=== PATIENT | male | born 1965 | race Caucasian/White ===

== ENCOUNTER 2020-10-06 19:22 | Inpatient (IN) | payer OTHER ==
[~2020-10-06] VITALS: Ht 182.9 cm; Wt 105.4 kg
[2020-10-06] MEDS ORDERED: SODIUM CHLORIDE 0.9% 1,000 ML IV ONE (20:00)
[2020-10-06] MEDS ORDERED: ONDANSETRON 2MG/ML, 2ML IVPush ONE (20:00)
[2020-10-06] MEDS ORDERED: SODIUM CHLORIDE FLUSH 10ML SYR IVF ONE (20:00)
[2020-10-06] MEDS ORDERED: MORPHINE SULFATE 4 MG/ML, 1ML ONE ×2 (20:07→21:07)
[2020-10-06] MEDS ORDERED: ONDANSETRON 2MG/ML, 2ML ONE (20:07)
[2020-10-06 20:09] LABS: BASOPHILS % (AUTO) 0 % (0-1); EOSINOPHILS % (AUTO) 0 % (1-7); LYMPHOCYTES % (AUTO) 9 % (22-44); MEAN CORPUSCULAR HEMOGLOBIN 28.2 pg (27.5-34.5); MEAN CORPUSCULAR HGB CONC 33.9 g/dL (33.2-36.2); MEAN PLATELET VOLUME 7.2 fL (7.4-10.4); MONOCYTES % (AUTO) 9 % (2-9); NEUTROPHILS % (AUTO) 81 % (42-75); PLATELET COUNT 345 x10^3/uL (130-400); RED BLOOD COUNT 5.36 x10^6/uL (4.38-5.82); RED CELL DISTRIBUTION WIDTH 13.2 % (9.4-14.8)
[2020-10-06] MEDS: MORPHINE SULFATE 4 MG/ML, 1ML IVPush PRN ×2 (20:10→21:11)
[2020-10-06 20:11] LABS: MD NO
--- NOTE | 2020-10-06 20:13 | NUR ---
PT. IS A & O X 4 WITH A GCS OF 15. PT. HAS A C/O 8 DAYS WITH ABD. PAIN AND DIVERTICULITIS. PT. REPORTS WORSENING PAIN TODAY. PT. IS PINK, WARM AND DRY, CAP REFILL IS LESS THAN 2 SECONDS. PULSES ARE +2 THROUGHOUT. PT.'S LUNGS ARE CTA. S1 S2 NOTED WITHOUT MURMURS, RUBS OR GALLOPS. PT.'S ABD. IS ROUND AND TENDER WITH BS +X 4 QUADS. PT. HAS PAIN THROUGHOUT HIS ENTIRE ABD. WITH PALPATION. PT. MOVES ALL EXTREMITIES WNL. CP MONITOR IS IN PLACE. IV ACCESS WAS ESTABLISHED X 1 STICK WITH LABS OBTAINED FROM THE IV START. PT.'S HOB IS ELEVATED GREATER THAN 30 DEGREES. VSS. PT. HAS A BLANKET IN PLACE FOR WARMTH. SIDERAILS REMAIN UP X 2 WITH THE CALL LIGHT IN PLACE.
[2020-10-06 20:22] LABS: ALANINE AMINOTRANSFERASE 21 U/L (12-78); ANION GAP 7 mmol/L (5-15); CALCIUM 8.3 mg/dL (8.5-10.1); CHLORIDE 103 mmol/L (98-107); CREATININE 0.74 mg/dL (0.7-1.3)
[2020-10-06 20:25] LABS: ALKALINE PHOSPHATASE 92 U/L (45-117); BILIRUBIN,TOTAL 0.5 mg/dL (0.2-1.0); TOTAL PROTEIN 6.5 g/dL (6.4-8.2)
--- NOTE | 2020-10-06 20:31 | NUR ---
PT. REPORTS PAIN RELIEF.
--- NOTE | 2020-10-06 21:03 | NUR ---
PT. WAS TAKEN TO CT SCAN. VSS.
[2020-10-06] MEDS ORDERED: OMNIPAQUE 350 MG/ML, 100ML BOTTLE ONE (21:06)
[2020-10-06] MEDS ORDERED: CIPROFLOXACIN/PMX 400MG/200ML 200 ML IVPB ONE (21:30)
[2020-10-06] MEDS ORDERED: SODIUM CHLORIDE 0.9% 1,000ML IVBOLUS ONE (21:30)
[2020-10-06] MEDS ORDERED: METRONIDAZOLE PMX 500MG/100ML 100 ML IV ONE (21:30)
[2020-10-06] MEDS ORDERED: hydrALAzine 20 MG/ML, 1ML IVPush PRN (22:30)
[2020-10-06] MEDS ORDERED: ACETAMINOPHEN 325 MG TABLET PO PRN (22:30)
[2020-10-06] MEDS ORDERED: ONDANSETRON 2MG/ML, 2ML IVPush PRN (22:30)
[2020-10-06] MEDS ORDERED: PROMETHAZINE 25 MG/ML, 1ML IM PRN (22:30)
[2020-10-06] MEDS ORDERED: D5%-0.9% NACL 1,000 ML IV SCH (22:30)
[2020-10-06] MEDS ORDERED: ONDANSETRON ODT 4 MG PO PRN (22:30)
[2020-10-06] MEDS: PIPERACILLIN/TAZO 3.375 GM in DEXTROSE 5% 50 ML IV SCH (22:42)
[2020-10-06] MEDS ORDERED: BENA40TA3 PO (22:44)
[2020-10-06] MEDS ORDERED: ATEN25TA PO (22:44)
--- NOTE | 2020-10-06 22:44 | NUR ---
PT.'S IV ABX ARE INFUSING ON THE PUMP. VSS. DR. HAMM UPDATED ON PT.'S HOME MEDS. REPORT CALLED PT. READY FOR TRANSPORT.
[2020-10-06] MEDS ORDERED: POTASSIUM CHLORIDE 40 MEQ in SODIUM CHLORIDE 0.9% 500 ML IV ONE (23:00)
[2020-10-06 23:13] VITALS: BP 127/81
[2020-10-07] MEDS: morphine SULFATE 10 MG/ML, 1ML IVPush PRN ×2 (00:08→05:08)
[2020-10-07 00:11] VITALS: BP 128/84
[2020-10-07] MEDS: PIPERACILLIN/TAZO 3.375 GM in DEXTROSE 5% 50 ML IV SCH ×4 (04:59→23:59)
[2020-10-07 05:45] LABS: MICROSCOPIC NOT IND
[2020-10-07 06:37] LABS: BASOPHILS % (AUTO) 0 % (0-1); EOSINOPHILS % (AUTO) 0 % (1-7); LYMPHOCYTES % (AUTO) 11 % (22-44); MEAN CORPUSCULAR HGB CONC 33.9 g/dL (33.2-36.2); MEAN PLATELET VOLUME 7.5 fL (7.4-10.4); MONOCYTES % (AUTO) 11 % (2-9); NEUTROPHILS % (AUTO) 77 % (42-75); PLATELET COUNT 302 x10^3/uL (130-400); RED BLOOD COUNT 4.96 x10^6/uL (4.38-5.82); RED CELL DISTRIBUTION WIDTH 13.4 % (9.4-14.8)
[2020-10-07 06:38] LABS: MD NO
[2020-10-07 06:53] LABS: CHLORIDE 107 mmol/L (98-107)
[2020-10-07 07:05] LABS: ALANINE AMINOTRANSFERASE 17 U/L (12-78); ALBUMIN 2.7 g/dL (3.4-5.0); ALKALINE PHOSPHATASE 78 U/L (45-117); ANION GAP 5 mmol/L (5-15); BILIRUBIN,TOTAL 0.4 mg/dL (0.2-1.0); CALCIUM 7.9 mg/dL (8.5-10.1); CHOL/HDL RATIO 2.9; CHOLESTEROL, TOTAL 80 mg/dL (140-239); CREATININE 0.64 mg/dL (0.7-1.3); HDL CHOL % 35 % (26-37); HDL CHOLESTEROL (DIRECT) 28 mg/dL (40-60); LDL CHOLESTEROL,CALCULATED 42 mg/dL (54-169); LDL/HDL RATIO 1.5 (0.5-3.0); TRIGLYCERIDES 48 mg/dL (50-200); VLDL CHOLESTEROL 10 mg/dL (0-25)
[2020-10-07 07:27] VITALS: BP 124/76
[2020-10-07] MEDS: ATENOLOL 50 MG TABLET PO SCH (09:55)
[2020-10-07] MEDS: BENAZEPRIL 20 MG TABLET PO SCH (09:55)
[2020-10-07 13:12] VITALS: BP 108/68
[2020-10-07] MEDS ORDERED: LIDOCAINE 1%, 10ML ONE (16:22)
[2020-10-07] MEDS ORDERED: FENTANYL PF 100 MCG/2ML ONE (16:29)
[2020-10-07] MEDS ORDERED: FLUMAZENIL 0.1 MG/1 ML, 5ML ONE (16:29)
[2020-10-07] MEDS ORDERED: MIDAZOLAM 1 MG/ML, 5ML ONE (16:29)
[2020-10-07] MEDS ORDERED: NALOXONE 1 MG/ML, 2ML ONE (16:30)
[2020-10-07 18:31] LABS: ANION GAP 5 mmol/L (5-15); CALCIUM 7.7 mg/dL (8.5-10.1); CHLORIDE 109 mmol/L (98-107); CREATININE 0.67 mg/dL (0.7-1.3)
[2020-10-07 19:51] VITALS: BP 110/70
[2020-10-07] MEDS: POTASSIUM CHLORIDE 20 MEQ in D5%-0.9% NACL 1,000 ML IV SCH (21:04)
[2020-10-07] MEDS: OXYcodone IR 5MG TABLET PO PRN (21:04)
[2020-10-07] MEDS: HEPARIN 5,000 UNITS/ML, 1ML SQ SCH (21:05)
[2020-10-08 01:13] VITALS: BP 128/80
[2020-10-08] MEDS: morphine SULFATE 10 MG/ML, 1ML IVPush PRN ×4 (02:27→21:31)
[2020-10-08] MEDS: POTASSIUM CHLORIDE 20 MEQ in D5%-0.9% NACL 1,000 ML IV SCH ×3 (05:56→23:27)
[2020-10-08] MEDS: HEPARIN 5,000 UNITS/ML, 1ML SQ SCH ×3 (05:56→21:31)
[2020-10-08] MEDS: PIPERACILLIN/TAZO 3.375 GM in DEXTROSE 5% 50 ML IV SCH ×3 (05:56→19:35)
[2020-10-08] MEDS: OXYcodone IR 5MG TABLET PO PRN ×3 (06:05→16:39)
[2020-10-08 06:06] LABS: BASOPHILS % (AUTO) 1 % (0-1); EOSINOPHILS % (AUTO) 1 % (1-7); LYMPHOCYTES % (AUTO) 13 % (22-44); MEAN CORPUSCULAR HEMOGLOBIN 28.4 pg (27.5-34.5); MEAN CORPUSCULAR HGB CONC 34.2 g/dL (33.2-36.2); MEAN PLATELET VOLUME 7.6 fL (7.4-10.4); MONOCYTES % (AUTO) 11 % (2-9); NEUTROPHILS % (AUTO) 74 % (42-75); PLATELET COUNT 306 x10^3/uL (130-400); RED BLOOD COUNT 4.75 x10^6/uL (4.38-5.82); RED CELL DISTRIBUTION WIDTH 13.4 % (9.4-14.8)
[2020-10-08 06:10] LABS: MD NO
[2020-10-08 06:11] LABS: ALBUMIN 2.5 g/dL (3.4-5.0); ANION GAP 4 mmol/L (5-15); CALCIUM 7.8 mg/dL (8.5-10.1); CHLORIDE 109 mmol/L (98-107)
[2020-10-08 06:16] LABS: ALANINE AMINOTRANSFERASE 17 U/L (12-78); ALKALINE PHOSPHATASE 73 U/L (45-117); BILIRUBIN,TOTAL 0.4 mg/dL (0.2-1.0); CREATININE 0.69 mg/dL (0.7-1.3); TOTAL PROTEIN 5.6 g/dL (6.4-8.2)
[2020-10-08 06:49] VITALS: BP 129/86
[2020-10-08] MEDS: BENAZEPRIL 20 MG TABLET PO SCH (09:13)
[2020-10-08] MEDS: ATENOLOL 50 MG TABLET PO SCH (09:13)
[2020-10-08 12:47] VITALS: BP 125/80
[2020-10-08 19:30] VITALS: BP 130/84
[2020-10-09] MEDS: PIPERACILLIN/TAZO 3.375 GM in DEXTROSE 5% 50 ML IV SCH ×2 (00:31→06:15)
[2020-10-09 01:30] VITALS: BP 125/85
[2020-10-09] MEDS: morphine SULFATE 10 MG/ML, 1ML IVPush PRN ×2 (04:39→08:28)
[2020-10-09] MEDS: HEPARIN 5,000 UNITS/ML, 1ML SQ SCH (05:16)
[2020-10-09 05:47] LABS: BASOPHILS % (AUTO) 0 % (0-1); EOSINOPHILS % (AUTO) 0 % (1-7); LYMPHOCYTES % (AUTO) 11 % (22-44); MEAN CORPUSCULAR HEMOGLOBIN 28.1 pg (27.5-34.5); MEAN CORPUSCULAR HGB CONC 33.6 g/dL (33.2-36.2); MEAN PLATELET VOLUME 7.4 fL (7.4-10.4); MONOCYTES % (AUTO) 11 % (2-9); NEUTROPHILS % (AUTO) 77 % (42-75); PLATELET COUNT 327 x10^3/uL (130-400); RED BLOOD COUNT 4.97 x10^6/uL (4.38-5.82); RED CELL DISTRIBUTION WIDTH 13.5 % (9.4-14.8)
[2020-10-09 05:50] LABS: MD NO
[2020-10-09 06:00] LABS: CHLORIDE 110 mmol/L (98-107)
[2020-10-09 06:08] LABS: ALBUMIN 2.5 g/dL (3.4-5.0); ANION GAP 5 mmol/L (5-15); CREATININE 0.59 mg/dL (0.7-1.3)
[2020-10-09 07:03] VITALS: BP 129/82
[2020-10-09] MEDS: POTASSIUM CHLORIDE 20 MEQ in D5%-0.9% NACL 1,000 ML IV SCH ×2 (08:27→23:17)
[2020-10-09] MEDS: BENAZEPRIL 20 MG TABLET PO SCH (08:28)
[2020-10-09] MEDS: ATENOLOL 50 MG TABLET PO SCH (08:28)
[2020-10-09] MEDS ORDERED: FENTANYL PF 250 MCG/5ML ONE (10:20)
[2020-10-09] MEDS ORDERED: PROPOFOL 50 ML ONE (10:20)
[2020-10-09] MEDS ORDERED: MIDAZOLAM 1 MG/ML, 2ML ONE (10:20)
[2020-10-09] MEDS ORDERED: PROPOFOL 10 MG/ML, 20ML ONE (10:23)
[2020-10-09] MEDS ORDERED: ONDANSETRON 2MG/ML, 2ML ONE (11:25)
[2020-10-09] MEDS ORDERED: ROCURONIUM 10MG/ML,5ML ONE (11:25)
[2020-10-09] MEDS ORDERED: DEXAMETHASONE 4 MG/ML, 5ML ONE (11:25)
[2020-10-09] MEDS ORDERED: SUCCINYLCHOLINE 20 MG/ML, 10ML ONE (11:25)
[2020-10-09] MEDS ORDERED: HYDROmorphone 1 MG/ML, 1ML INJ ONE (11:26)
[2020-10-09] MEDS ORDERED: EPHEDRINE 50 MG/ML, 1ML IVPush PRN (13:30)
[2020-10-09] MEDS ORDERED: MEPERIDINE/PF 25MG/0.5ML IVPush PRN (13:30)
[2020-10-09] MEDS ORDERED: PROMETHAZINE 25 MG/ML, 1ML IVPush PRN (13:30)
[2020-10-09] MEDS ORDERED: ONDANSETRON 2MG/ML, 2ML IVPush PRN (13:30)
[2020-10-09] MEDS ORDERED: OXYcodone 5 MG/5 ML ORAL.SOL UDC PO PRN (13:30)
[2020-10-09] MEDS ORDERED: morphine SULFATE 10 MG/ML, 1ML IVPush PRN (13:30)
[2020-10-09] MEDS ORDERED: DIAZEPAM 5 MG/ML, 2ML IVPush PRN (13:30)
[2020-10-09] MEDS ORDERED: FENTANYL PF 100 MCG/2ML IV PRN (13:30)
[2020-10-09] MEDS ORDERED: DIPHENHYDRAMINE 50 MG/ML, 1ML IVPush PRN (13:30)
[2020-10-09] MEDS ORDERED: EPHEDRINE 50 MG/ML, 1ML IM PRN (13:30)
[2020-10-09] MEDS ORDERED: LABETALOL 5MG/ML, 20ML IV PRN (13:30)
[2020-10-09] MEDS ORDERED: METHOCARBAMOL 1,000 MG in DEXTROSE 5% 100 ML IV PRN (14:00)
[2020-10-09] MEDS ORDERED: FENTANYL PF 100 MCG/2ML ONE (14:07)
[2020-10-09] MEDS ORDERED: OXYcodone 5 MG/5 ML ORAL.SOL UDC ONE (14:07)
[2020-10-09 14:30] VITALS: BP 109/72
[2020-10-09] MEDS ORDERED: OXYcodone IR 5MG TABLET PO PRN (16:30)
[2020-10-09] MEDS ORDERED: LACTATED RINGERS 1,000 ML IV SCH (16:30)
[2020-10-09] MEDS ORDERED: SCOPOLAMINE 1MG PATCH TD PRN (16:30)
[2020-10-09] MEDS ORDERED: LORazepam 1MG TABLET PO PRN (16:30)
[2020-10-09] MEDS ORDERED: TRAZODONE 50MG TABLET PO PRN (16:30)
[2020-10-09] MEDS ORDERED: DEXAMETHASONE 4 MG/ML, 1ML IVPush PRN (16:30)
[2020-10-09] MEDS ORDERED: LORazepam 2 MG/ML, 1ML IVPush PRN (16:30)
[2020-10-09] MEDS ORDERED: HYDROmorphone 1 MG/ML, 1ML INJ IVPush PRN (16:30)
[2020-10-09] MEDS ORDERED: SODIUM CHLORIDE FLUSH 10ML SYR IVF PRN (16:30)
[2020-10-09] MEDS ORDERED: DIPHENHYDRAMINE 25 MG CAPSULE PO PRN (16:30)
[2020-10-09] MEDS ORDERED: ONDANSETRON 2MG/ML, 2ML IV PRN (16:30)
[2020-10-09] MEDS ORDERED: HALOPERIDOL 5 MG/ML IVPush PRN (16:30)
[2020-10-09] MEDS: PIPERACILLIN/TAZO 3.375 GM in DEXTROSE 5% 50 ML IVPB SCH ×2 (17:30→23:17)
[2020-10-09] MEDS: ACETAMINOPHEN 500 MG TABLET PO SCH ×2 (17:30→23:17)
[2020-10-09] MEDS: KETOROLAC 30 MG/1 ML IVPush SCH ×2 (17:30→23:17)
[2020-10-09 20:00] VITALS: BP 105/69
[2020-10-09 23:37] VITALS: BP 114/72
[2020-10-10 03:41] VITALS: BP 105/67
[2020-10-10 05:22] LABS: ANION GAP 3 mmol/L (5-15); CALCIUM 8.1 mg/dL (8.5-10.1); CHLORIDE 111 mmol/L (98-107)
[2020-10-10] MEDS: PIPERACILLIN/TAZO 3.375 GM in DEXTROSE 5% 50 ML IVPB SCH ×4 (05:22→23:22)
[2020-10-10] MEDS: KETOROLAC 30 MG/1 ML IVPush SCH ×4 (05:23→23:22)
[2020-10-10] MEDS: ACETAMINOPHEN 500 MG TABLET PO SCH ×4 (05:23→23:22)
[2020-10-10 06:18] LABS: BASOPHILS % (AUTO) 0 % (0-1); EOSINOPHILS % (AUTO) 0 % (1-7); LYMPHOCYTES % (AUTO) 9 % (22-44); MEAN CORPUSCULAR HEMOGLOBIN 27.8 pg (27.5-34.5); MEAN CORPUSCULAR HGB CONC 33.2 g/dL (33.2-36.2); MEAN PLATELET VOLUME 7.4 fL (7.4-10.4); MONOCYTES % (AUTO) 13 % (2-9); NEUTROPHILS % (AUTO) 78 % (42-75); PLATELET COUNT 292 x10^3/uL (130-400); RED BLOOD COUNT 4.83 x10^6/uL (4.38-5.82); RED CELL DISTRIBUTION WIDTH 13.5 % (9.4-14.8)
[2020-10-10] MEDS: D5%-0.45NACL+KCL 20MEQ 1,000 ML IV SCH ×2 (06:42→21:21)
[2020-10-10 06:43] LABS: MD SCAN
[2020-10-10 07:20] VITALS: BP 108/70
[2020-10-10] MEDS: ENOXAPARIN 40 MG/0.4 ML SQ SCH (08:47)
[2020-10-10] MEDS: BENAZEPRIL 20 MG TABLET PO SCH (09:00)
[2020-10-10] MEDS: ATENOLOL 50 MG TABLET PO SCH (09:00)
[2020-10-10 13:53] VITALS: BP 103/66
[2020-10-10] MEDS: AMPICILLIN/SULBACTAM 3 GM in SODIUM CHLORIDE 0.9% 100 ML IV SCH ×2 (14:52→22:24)
[2020-10-10 19:17] VITALS: BP 113/72
[2020-10-10] MEDS: DIPHENHYDRAMINE 50 MG/ML, 1ML IVPush PRN (23:21)
[2020-10-11] MEDS: CALCIUM CARBONATE 500 MG TAB.CHEW PO PRN ×2 (00:47→04:35)
[2020-10-11 01:22] VITALS: BP 102/63
[2020-10-11 03:15] LABS: BASOPHILS % (AUTO) 0 % (0-1); EOSINOPHILS % (AUTO) 0 % (1-7); LYMPHOCYTES % (AUTO) 3 % (22-44); MEAN CORPUSCULAR HGB CONC 33.2 g/dL (33.2-36.2); MEAN PLATELET VOLUME 7.2 fL (7.4-10.4); MONOCYTES % (AUTO) 4 % (2-9); NEUTROPHILS % (AUTO) 92 % (42-75); PLATELET COUNT 352 x10^3/uL (130-400); RED BLOOD COUNT 4.82 x10^6/uL (4.38-5.82); RED CELL DISTRIBUTION WIDTH 13.5 % (9.4-14.8)
[2020-10-11 03:17] LABS: MD NO
[2020-10-11 03:27] LABS: ANION GAP 3 mmol/L (5-15); CALCIUM 8.3 mg/dL (8.5-10.1); CHLORIDE 107 mmol/L (98-107); CREATININE 0.69 mg/dL (0.7-1.3)
[2020-10-11] MEDS: ACETAMINOPHEN 500 MG TABLET PO SCH ×4 (05:30→23:21)
[2020-10-11] MEDS: KETOROLAC 30 MG/1 ML IVPush SCH ×4 (05:30→23:22)
[2020-10-11] MEDS: DIPHENHYDRAMINE 50 MG/ML, 1ML IVPush PRN (05:32)
[2020-10-11] MEDS: PIPERACILLIN/TAZO 3.375 GM in DEXTROSE 5% 50 ML IVPB SCH ×4 (05:32→23:22)
[2020-10-11] MEDS: AMPICILLIN/SULBACTAM 3 GM in SODIUM CHLORIDE 0.9% 100 ML IV SCH ×3 (06:22→22:23)
[2020-10-11 07:59] VITALS: BP 144/93
[2020-10-11] MEDS: ATENOLOL 50 MG TABLET PO SCH (09:08)
[2020-10-11] MEDS: BENAZEPRIL 20 MG TABLET PO SCH (09:08)
[2020-10-11] MEDS: FLUCONAZOLE 400 MG/200 ML 200 ML IV SCH (09:08)
[2020-10-11] MEDS: ENOXAPARIN 40 MG/0.4 ML SQ SCH (09:08)
[2020-10-11 14:35] VITALS: BP 127/82
[2020-10-11] MEDS: D5%-0.45NACL+KCL 20MEQ 1,000 ML IV SCH (16:05)
[2020-10-11 18:40] VITALS: BP 113/74
[2020-10-12 05:08] LABS: BASOPHILS % (AUTO) 1 % (0-1); EOSINOPHILS % (AUTO) 2 % (1-7); LYMPHOCYTES % (AUTO) 11 % (22-44); MEAN CORPUSCULAR HEMOGLOBIN 27.8 pg (27.5-34.5); MEAN CORPUSCULAR HGB CONC 32.9 g/dL (33.2-36.2); MEAN PLATELET VOLUME 7.2 fL (7.4-10.4); MONOCYTES % (AUTO) 8 % (2-9); NEUTROPHILS % (AUTO) 79 % (42-75); PLATELET COUNT 355 x10^3/uL (130-400); RED BLOOD COUNT 4.55 x10^6/uL (4.38-5.82); RED CELL DISTRIBUTION WIDTH 13.6 % (9.4-14.8)
[2020-10-12 05:09] LABS: MD NO
[2020-10-12] MEDS: PIPERACILLIN/TAZO 3.375 GM in DEXTROSE 5% 50 ML IVPB SCH ×4 (05:15→23:42)
[2020-10-12] MEDS: D5%-0.45NACL+KCL 20MEQ 1,000 ML IV SCH ×3 (05:15→22:41)
[2020-10-12] MEDS: KETOROLAC 30 MG/1 ML IVPush SCH ×2 (05:15→11:35)
[2020-10-12] MEDS: ACETAMINOPHEN 500 MG TABLET PO SCH ×4 (05:15→23:42)
[2020-10-12 05:17] LABS: CHLORIDE 108 mmol/L (98-107)
[2020-10-12 05:23] VITALS: BP 130/80
[2020-10-12 05:24] LABS: ANION GAP 3 mmol/L (5-15); CALCIUM 8.4 mg/dL (8.5-10.1); CREATININE 0.73 mg/dL (0.7-1.3)
[2020-10-12] MEDS: AMPICILLIN/SULBACTAM 3 GM in SODIUM CHLORIDE 0.9% 100 ML IV SCH ×3 (06:12→22:41)
[2020-10-12 06:59] VITALS: BP 120/82
[2020-10-12] MEDS: FLUCONAZOLE 400 MG/200 ML 200 ML IV SCH (08:05)
[2020-10-12] MEDS: ENOXAPARIN 40 MG/0.4 ML SQ SCH (09:31)
[2020-10-12] MEDS: ATENOLOL 50 MG TABLET PO SCH (09:36)
[2020-10-12] MEDS: BENAZEPRIL 20 MG TABLET PO SCH (09:36)
[2020-10-12 15:25] VITALS: BP 126/80
[2020-10-12 19:36] VITALS: BP 134/77
[2020-10-13] MEDS: ACETAMINOPHEN 500 MG TABLET PO SCH ×4 (05:16→23:30)
[2020-10-13] MEDS: PIPERACILLIN/TAZO 3.375 GM in DEXTROSE 5% 50 ML IVPB SCH ×4 (05:16→23:29)
[2020-10-13] MEDS: CALCIUM CARBONATE 500 MG TAB.CHEW PO PRN (05:20)
[2020-10-13 05:28] VITALS: BP 128/87
[2020-10-13] MEDS: AMPICILLIN/SULBACTAM 3 GM in SODIUM CHLORIDE 0.9% 100 ML IV SCH ×2 (06:20→14:39)
[2020-10-13 07:50] VITALS: BP 136/87
[2020-10-13] MEDS: FLUCONAZOLE 400 MG/200 ML 200 ML IV SCH (08:46)
[2020-10-13] MEDS: ATENOLOL 50 MG TABLET PO SCH (08:47)
[2020-10-13] MEDS: ENOXAPARIN 40 MG/0.4 ML SQ SCH (08:47)
[2020-10-13] MEDS: BENAZEPRIL 20 MG TABLET PO SCH (08:47)
[2020-10-13] MEDS: D5%-0.45NACL+KCL 20MEQ 1,000 ML IV SCH (11:36)
[2020-10-13 13:59] VITALS: BP 133/91
[2020-10-13 20:54] VITALS: BP 132/87
[2020-10-14] MEDS: D5%-0.45NACL+KCL 20MEQ 1,000 ML IV SCH ×2 (00:56→14:16)
[2020-10-14 01:33] VITALS: BP 133/83
[2020-10-14 05:16] LABS: BASOPHILS % (AUTO) 1 % (0-1); EOSINOPHILS % (AUTO) 2 % (1-7); LYMPHOCYTES % (AUTO) 10 % (22-44); MEAN CORPUSCULAR HEMOGLOBIN 28.3 pg (27.5-34.5); MEAN CORPUSCULAR HGB CONC 33.8 g/dL (33.2-36.2); MEAN PLATELET VOLUME 6.8 fL (7.4-10.4); MONOCYTES % (AUTO) 9 % (2-9); NEUTROPHILS % (AUTO) 78 % (42-75); PLATELET COUNT 386 x10^3/uL (130-400); RED BLOOD COUNT 4.61 x10^6/uL (4.38-5.82); RED CELL DISTRIBUTION WIDTH 13.2 % (9.4-14.8)
[2020-10-14 05:23] LABS: ANION GAP 7 mmol/L (5-15); CALCIUM 8.2 mg/dL (8.5-10.1); CHLORIDE 106 mmol/L (98-107)
[2020-10-14 05:24] LABS: CREATININE 0.66 mg/dL (0.7-1.3)
[2020-10-14] MEDS: ACETAMINOPHEN 500 MG TABLET PO SCH ×2 (05:30→11:30)
[2020-10-14] MEDS: PIPERACILLIN/TAZO 3.375 GM in DEXTROSE 5% 50 ML IVPB SCH ×2 (05:47→12:41)
[2020-10-14 05:54] LABS: MD NO
[2020-10-14] MEDS: FLUCONAZOLE 400 MG/200 ML 200 ML IV SCH (07:40)
[2020-10-14] MEDS: ENOXAPARIN 40 MG/0.4 ML SQ SCH (07:41)
[2020-10-14] MEDS: ATENOLOL 50 MG TABLET PO SCH (07:41)
[2020-10-14] MEDS: BENAZEPRIL 20 MG TABLET PO SCH (07:41)
[2020-10-14] MEDS ORDERED: MAGNESIUM SULFATE PMX 2GM/50ML 50 ML IV ONE (08:00)
[2020-10-14 08:03] VITALS: BP 129/89
[2020-10-14] MEDS ORDERED: AMOX1TAB64 PO (09:40)
[2020-10-14] MEDS ORDERED: OXYC-302 PO (09:40)
[2020-10-14 13:19] VITALS: BP 120/79
== END 2020-10-14 16:35 | disposition home or self-care (01) | DRG 331 ==
LOC: ED 19:49 → EDIP 21:44 → 3N 23:20 → 4NE 10-09 14:25 → DCLOUNGE 10-14 16:31
PROVIDERS: ADMIT Colon & Rectal Surgery; ATTEND Colon & Rectal Surgery
PROC: 0W9J30Z Drainage of Pelvic Cavity with Drainage Device, Percutaneous Approach (ICD-10-PCS; 2020-10-07)
PROC: 0D1M0Z4 Bypass Descending Colon to Cutaneous, Open Approach (ICD-10-PCS; principal; 2020-10-09 10:30)
DX: K57.20 Diverticulitis of large intestine with perforation and abscess without bleeding (principal); E87.6 Hypokalemia; F12.90 Cannabis use, unspecified, uncomplicated; I10 Essential (primary) hypertension; K64.9 Unspecified hemorrhoids; Z68.30 Body mass index [BMI] 30.0-30.9, adult; Z79.899 Other long term (current) drug therapy; Z87.891 Personal history of nicotine dependence; K59.00 Constipation, unspecified; Z20.822 Contact with and (suspected) exposure to COVID-19
CPT/HCPCS: 36415; 74430; 75989; 87106; 96361; 96374; 96375; 96376; 99285; J3490; J7042; 74177; 80048; 80053; 80061; 80069; 81003; 83036; 83690; 83735; 84100; 84443; 85025; 87040; 87070; 87075; 87076; 87077; 87102; 87186; 87205; 87635; 88307; 93005; C1729; G0378; J0295; J1100; J1170; J1450; J1644; J1650; J1885; J2250; J2405; J2543; J2704; J3010; J3480; Q9967; C1765; C1769; J0330; J1200; J2270; J2310; J2800; J3475; J7030; J7040